=== PATIENT | male | born 1980 | race Caucasian/White ===

== ENCOUNTER 2018-06-11 07:27 | Emergency (ER) | payer SELFPAY ==
[2018-06-11 07:45] VITALS: TEMP 97.6
--- NOTE | 2018-06-11 08:02 | ED.PDOC ---
History of Present Illness - General Chief Complaint: Back Pain or Injury Time Seen by Provider: 06/11/18 07:56 Source: patient Exam Limitations: no limitations - History of Present Illness Initial Comments: 2 WEEK HX OF INCREASING LBP. 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 USUALLY RESPONDS TO OTC NSAIDS BUT THIS EPISODE HAS NOT. HAS GOTTEN PROGRESSIVELY WORSE. NOW WITH RADIATION TO L LEG DOWN TO ANKLE. Quality/Severity: moderate Back Pain Location: lumbar spine Improving Factors: nothing Worsening Factors: movement Allergies/Adverse Reactions: Allergies Penicillins Allergy (Verified 06/11/18 07:43) Rash Home Medications: Ambulatory Orders Cyclobenzaprine HCl [Flexeril] 10 mg PO TID PRN #15 tab 06/11/18 Indomethacin 50 mg PO TID PRN #14 cap 06/11/18 Methylprednisolone [Medrol Dose Tommie] 4 mg PO DAILY #1 tab 06/11/18 Review of Systems - Review of Systems Constitutional: Denies: chills, fever EENTM: States: no symptoms reported Respiratory: States: no symptoms reported Cardiology: States: no symptoms reported Gastrointestinal/Abdominal: Denies: abdominal pain, nausea, vomiting Genitourinary: States: other - NO INCONTINENCE Musculoskeletal: States: back pain, muscle pain. Denies: neck pain Skin: States: no symptoms reported Neurological: Denies: numbness, paresthesia, weakness Endocrine: States: no symptoms reported Hematologic/Lymphatic: States: no symptoms reported Past Medical History (General) - Patient Medical History Hx Stroke: No Hx Congestive Heart Failure: No Hx Diabetes: No Hx MRSA: No - Vaccination History Hx Tetanus, Diphtheria Vaccination: Yes - 2016 Hx Influenza Vaccination: No Hx Pneumococcal Vaccination: No - Social History Hx Tobacco Use: Yes Hx Alcohol Use: No Family Medical History - Family History Father Family History: Unknown Living Status: Unknown Physical Exam - Physical Exam General Appearance: Alert, No apparent distress Eyes, Ears, Nose, Throat Exam: PERRL/EOMI, normal ENT inspection Neck Exam: non-tender, full range of motion Cardiovascular/Respiratory: regular rate, rhythm, no M/R/G Gastrointestinal/Abdominal: normal bowel sounds, non tender, soft, no organomegaly Back Exam: muscle spasm, other - SIGNIFICANT R PARASPINOUS SPASM, SOME MIDLINE TTP Extremity Exam: no evidence of injury, normal range of motion Neurologic: no motor/sensory deficits, alert, other - DTR'S NL, NO FOOT DROP Skin Exam: normal color, warm/dry Progress - Progress Progress: 06/11/18 09:12 FEELS BETTER, MOVING BETTER. - EKG/XRAY/CT XRAY: LS SPINE, LOSS OF LORDOSIS, NO ACUTE BONY ABN. Departure - Departure Clinical Impression: Lumbosacral strain Qualifiers: Encounter type: initial encounter Qualified Code(s): S39.012A - Strain of muscle, fascia and tendon of lower back, initial encounter Time of Disposition: :14 Disposition: Discharge to Home or Self Care Condition: Good Departure Forms: ED Discharge - Pt. Copy, Patient Portal Self Enrollment Instructions: DI for Low Back Pain, DI for Back Strain or Sprain, DI for Back Spasm Prescriptions: Cyclobenzaprine HCl [Flexeril] 10 mg PO TID PRN #15 tab PRN Reason: Pain Indomethacin 50 mg PO TID PRN #14 cap PRN Reason: Pain Methylprednisolone [Medrol Dose Tommie] 4 mg PO DAILY #1 tab Home Medications: Ambulatory Orders Cyclobenzaprine HCl [Flexeril] 10 mg PO TID PRN #15 tab 06/11/18 Indomethacin 50 mg PO TID PRN #14 cap 06/11/18 Methylprednisolone [Medrol Dose Tommie] 4 mg PO DAILY #1 tab 06/11/18
[2018-06-11] MEDS ORDERED: KETOROLAC TROMETHAMINE INJ 60 MG/2 ML VIAL IM ONE (08:04)
[2018-06-11] MEDS ORDERED: ORPHENADRINE CITRATE 30 MG/ML AMP IV ONE (08:04)
[2018-06-11] MEDS ORDERED: ORPHENADRINE CITRATE 30 MG/ML AMP IM ONE (08:24)
--- NOTE | 2018-06-11 08:26 | RAD ---
EXAM DESCRIPTION: Lumbar Spine 3 Views CLINICAL HISTORY: LOW BACK PAIN COMPARISON: None Available. TECHNIQUE: AP/lateral/coned-down lateral FINDINGS: There is anatomic alignment of the vertebral bodies of the lumbar spine. Moderate amount of fecal material throughout the colon. Frontal view shows intact pedicles and transverse processes. Sacrum appears intact with normal SI joints. Lateral view shows no vertebral compressions. Lumbar spine appears straightened without the usual lumbar lordotic curvature. Loss of disc height is seen at L4-5 and L5-S1 suggesting disc degeneration with mild endplate sclerosis and spurring. Normal bony mineralization. No destructive lesion. IMPRESSION: Negative for fracture. Degenerative changes as described. Electronically signed by: Roney Tovar MD 06/11/2018 8:24 AM CDT
[2018-06-11 08:54] VITALS: BP 118/72
[2018-06-11] MEDS ORDERED: TRIAMCINOLONE ACETONIDE INJ 40 MG/ML VIAL IM ONE (09:17)
[2018-06-11 09:37] VITALS: O2SAT 96
== END 2018-06-11 09:36 | disposition home or self-care (01) ==
LOC: ER 07:27
DX: S39.012A Strain of muscle, fascia and tendon of lower back, initial encounter (principal); Z88.0 Allergy status to penicillin; Z87.891 Personal history of nicotine dependence; X58.XXXA Exposure to other specified factors, initial encounter; Y92.9 Unspecified place or not applicable
CPT/HCPCS: 72100; J1885; J2360; J3301

== ENCOUNTER 2018-11-14 01:34 | Emergency (ER) | payer SELFPAY ==
[2018-11-14 01:51] VITALS: BP 107/74; TEMP 97.2; O2SAT 96
[2018-11-14] MEDS ORDERED: predniSONE 20 MG TAB PO ONE (01:59)
[2018-11-14] MEDS ORDERED: HYDROcodone 7.5MG/APAP 325MG 1 EA TAB PO ONE (01:59)
--- NOTE | 2018-11-14 02:02 | ED.PDOC ---
History of Present Illness - General Chief Complaint: Lower Extremity Injury Stated Complaint: right knee pain Time Seen by Provider: 11/14/18 01:52 Source: patient Exam Limitations: no limitations - History of Present Illness Initial Comments: The patient is a 38-year-old male presenting to the emergency room secondary to pain to the medial aspect of the right knee. It started earlier today but he does not really remember any inciting event. There is no swelling. There is no deformity. Pain is greatly exacerbated with external rotation of the foot. There is pain directly over the proximal aspect of the medial collateral ligament he is not really having any pain over theanterior aspect of the medial meniscus otherwise. There does not appear to be any knee instability. Anterior and posterior drawer signs are negative. No injury proximal or distal. Timing/Duration: unsure Severity: moderate Improving Factors: nothing Worsening Factors: nothing Associated Symptoms: denies symptoms Allergies/Adverse Reactions: Allergies Penicillins Allergy (Verified 11/14/18 01:52) Rash Home Medications: Ambulatory Orders Tramadol HCl 50 mg PO Q8HR PRN #20 tab 11/14/18 Review of Systems - Review of Systems Constitutional: States: no symptoms reported EENTM: States: no symptoms reported Respiratory: States: no symptoms reported Cardiology: States: no symptoms reported Gastrointestinal/Abdominal: States: no symptoms reported Genitourinary: States: no symptoms reported Musculoskeletal: States: see HPI Skin: States: no symptoms reported Neurological: States: no symptoms reported Endocrine: States: no symptoms reported All other Systems: No Change from Baseline Past Medical History (General) - Patient Medical History Hx Seizures: No Hx Stroke: No Hx Dementia: No Hx Asthma: No Hx of COPD: No Hx Cardiac Disorders: No Hx Congestive Heart Failure: No Hx Pacemaker: No Hx Hypertension: No Hx Diabetes: No Hx Gastroesophageal Reflux: No Hx Renal Disease: No Hx Cancer: No Hx of HIV: No Hx Hepatitis C: No Hx MRSA: No Surgical History: no surgical history - Vaccination History Hx Tetanus, Diphtheria Vaccination: Yes - 2016 Hx Influenza Vaccination: No Hx Pneumococcal Vaccination: No - Social History Hx Tobacco Use: Yes Hx Alcohol Use: No Family Medical History - Family History Father Family History: Unknown Living Status: Unknown Physical Exam - Physical Exam General Appearance: Alert, Comfortable, No apparent distress Eye Exam: bilateral normal Ears, Nose, Throat: hearing grossly normal Neck: full range of motion Respiratory: no respiratory distress, no accessory muscle use Cardiovascular/Chest: normal peripheral pulses, no edema Peripheral Pulses: dorsalis pedis,right: 2+, dorsalis pedis,left: 2+ Rectal Exam: deferred Extremity: no pedal edema, no calf tenderness, normal capillary refill, other - see history of present illness Neurologic: poultry scalder II-XII nml as tested, alert, normal mood/affect, oriented x 3 Skin Exam: normal color Comments: Vital Signs - 24 hr 11/14/18 01:42 Temperature 97.2 F L Pulse Rate [ 66 monitor] Respiratory 18 Rate Blood Pressure 107/74 [Left Arm] O2 Sat by Pulse 96 Oximetry Progress - Progress Progress: 11/14/18 02:02 the patient's 38-year-old male presenting with pain over the medial collateral ligament of the right knee. Source of this is not entirely certain but there does not appear to be any instability of the knee at this time. He'll be placed in a knee immobilizer for the next 5 or 6 days to allow this to rest. He will additionally be written for some tramadol for as needed use and can take Aleve 3 tablets twice daily with food for the next week as well to help reduce inflammation. He was given 1 dose of oral prednisone here. He can follow-up with his primary care doctor next week. certainly if the patient fails to improve over the coming weeks then additional workup would be warranted. ER warnings were given. Departure - Departure Clinical Impression: Knee MCL sprain Qualifiers: Encounter type: initial encounter Laterality: right Qualified Code(s): S83.411A - Sprain of medial collateral ligament of right knee, initial encounter Disposition: Discharge to Home or Self Care Condition: Fair Departure Forms: ED Discharge - Pt. Copy, Patient Portal Self Enrollment Instructions: DI for Knee Pain Diet: regular diet Activity: other Prescriptions: Tramadol HCl 50 mg PO Q8HR PRN #20 tab PRN Reason: Moderate To Severe Pain Home Medications: Ambulatory Orders Tramadol HCl 50 mg PO Q8HR PRN #20 tab 11/14/18 Additional Instructions: the patient's 38-year-old male presenting with pain over the medial collateral ligament of the right knee. Source of this is not entirely certain but there does not appear to be any instability of the knee at this time. He'll be placed in a knee immobilizer for the next 5 or 6 days to allow this to rest. He will additionally be written for some tramadol for as needed use and can take Aleve 3 tablets twice daily with food for the next week as well to help reduce inflammation. He was given 1 dose of oral prednisone here. He can follow-up with his primary care doctor next week. certainly if the patient fails to improve over the coming weeks then additional workup would be warranted. ER warnings were given.
== END 2018-11-14 02:15 | disposition home or self-care (01) ==
LOC: ER 01:34
DX: S83.411A Sprain of medial collateral ligament of right knee, initial encounter (principal); Z88.0 Allergy status to penicillin; X58.XXXA Exposure to other specified factors, initial encounter; Y92.9 Unspecified place or not applicable

== ENCOUNTER 2018-12-18 06:31 | Emergency (ER) | payer SELFPAY ==
[2018-12-18 06:53] VITALS: TEMP 95.1
[2018-12-18] MEDS ORDERED: KETOROLAC TROMETHAMINE INJ 30 MG/ML VIAL IM ONE (06:57)
--- NOTE | 2018-12-18 07:29 | RAD ---
PROCEDURE: XR Left Hip With Pelvis When Performed, 2 Views CLINICAL INDICATION: The patient is 38 years old and is Male; left hip/buttock pain TECHNIQUE: Two or three views of the left hip, with pelvis when performed. COMPARISON: No relevant prior studies available. FINDINGS: BONES/JOINTS: There is NO fracture or dislocation the LEFT hip. Joint space maintained. The sacroiliac joints are unremarkable. There are degenerative changes in the lower lumbar spine. Bone mineral density is normal. The pubic symphysis is intact. SOFT TISSUES: No radiopaque foreign body. No significant soft tissue swelling noted. TUBES, LINES AND DEVICES: Small central linear lucency in the femoral head is of uncertain etiology or origin. OTHER FINDINGS: The pelvic brim is smooth. The sacral neural arches are intact. Urinary bladder is distended and possibly opacified with contrast. IMPRESSION: No fracture or dislocation identified in the LEFT hip. Electronically signed by: Gary Chaidez MD 12/18/2018 7:26 AM CDT
--- NOTE | 2018-12-18 07:31 | RAD ---
PROCEDURE: XR Lumbar Spine, 2 or 3 Views CLINICAL INDICATION: The patient is 38 years old and is Male; left hip/buttock pain TECHNIQUE: AP, lateral and coned down lumbosacral views of the lumbar spine were performed . COMPARISON: Prior study from 06/11/2018 FINDINGS: VERTEBRAE: There are 5 nonribbearing lumbar vertebral bodies. Vertebral body heights are preserved. There is normal alignment No acute fracture. DISC SPACES: Disc spaces are intact. SOFT TISSUES: Unremarkable.No radiopaque foreign body. No significant soft tissue swelling noted. OTHER FINDINGS: There is lumbar straightening. IMPRESSION: No fracture or malalignment identified in the lumbar spine. No significant pathology or change from six months earlier. Electronically signed by: Gary Chaidez MD 12/18/2018 7:28 AM CDT
--- NOTE | 2018-12-18 07:44 | ED.PDOC ---
History of Present Illness - General Chief Complaint: Back Pain or Injury Stated Complaint: Pt complains of L lower back and L hip pain Time Seen by Provider: 12/18/18 06:52 Source: patient - History of Present Illness Initial Comments: THIS PATIENT PRESENTS WITH LEFT GLUTEAL PAIN AND LUMBAR PAIN. IT SEEMS TO HAVE EXACERBATED LAST NIGHT. HE HAS BEEN HAVING PAIN TO THE LEFT HIP AREA NOW FOR SEVERAL WEEKS. HE DENIES ANY INJURY. AT SOME POINT HE GOT A TENS UNIT BUT IS DOES NOT WORK. HIS GAVE HIM A TYLENOL # 4 THIS AM. Quality/Severity: moderate Back Pain Location: lumbar spine Back Pain Radiation: buttocks Method of Injury/Prior Injury: unknown Improving Factors: nothing Worsening Factors: nothing Associated Symptoms: denies symptoms Allergies/Adverse Reactions: Allergies Penicillins Allergy (Verified 12/18/18 06:53) Rash Home Medications: Ambulatory Orders Acetaminophen W/ Codeine [Tylenol W/ CODEINE #3] 1 ea PO Q6HRS #20 12/18/18 Cyclobenzaprine HCl [Flexeril] 10 mg PO BID #20 tab 12/18/18 Esomeprazole Magnesium [Nexium] 20 mg PO DAILY 12/18/18 Oxymetazoline Nasal [place] [Afrin Nasal [place]] 1 spray BNAS DAILY 12/18/18 Review of Systems - Review of Systems Constitutional: States: no symptoms reported EENTM: States: no symptoms reported Respiratory: States: no symptoms reported Cardiology: States: no symptoms reported Gastrointestinal/Abdominal: States: no symptoms reported Genitourinary: States: no symptoms reported Musculoskeletal: States: joint pain, joint swelling, muscle pain Skin: States: no symptoms reported Neurological: States: no symptoms reported Endocrine: States: no symptoms reported Hematologic/Lymphatic: States: no symptoms reported Past Medical History (General) - Patient Medical History Hx Seizures: No Hx Stroke: No Hx Dementia: No Hx Asthma: No Hx of COPD: No Hx Cardiac Disorders: No Hx Congestive Heart Failure: No Hx Pacemaker: No Hx Hypertension: No Hx Diabetes: No Hx Gastroesophageal Reflux: Yes Hx Renal Disease: No Hx Cancer: No Hx of HIV: No Hx Hepatitis C: No Hx MRSA: No Surgical History: no surgical history - Vaccination History Hx Tetanus, Diphtheria Vaccination: No Hx Influenza Vaccination: No Hx Pneumococcal Vaccination: No Immunizations Up to Date: - Unkown - Social History Hx Tobacco Use: Yes Hx Alcohol Use: Yes Hx Substance Use: No Hx Substance Use Treatment: No Hx Depression: No - Female History Patient is a Female of Child Bearing Age (10 -59 yrs old): No Patient : No Family Medical History - Family History Father Family History: Unknown Living Status: Unknown Mother Living Status: Hx Family Cancer: Yes Physical Exam - Physical Exam General Appearance: Alert, Obvious distress, Well Developed, Well Nourished Eyes, Ears, Nose, Throat Exam: PERRL/EOMI, normal ENT inspection Neck Exam: non-tender, full range of motion, normal inspection Cardiovascular/Respiratory: regular rate, rhythm, no M/R/G, normal peripheral pulses, no JVD Gastrointestinal/Abdominal: normal bowel sounds, non tender, soft Back Exam: normal inspection, no vertebral tenderness, muscle spasm Extremity Exam: other - PAIN TO THE LEFT GLUTEAL REGION ON PALPATION. Neurologic: other - POSITIVE STRAIGHT LEG TEST AT 30 DEGREES ON THE LEFT Progress - Results/Orders Results/Orders: X RAYS OF THE LEFT HIP AND THE PELVIS ARE NEGATIVE FOR FRACTURE OR DISLOCATION. Departure - Departure Clinical Impression: Sciatica of left side Time of Disposition: 07:49 Disposition: Discharge to Home or Self Care Condition: Good Departure Forms: ED Discharge - Pt. Copy, Patient Portal Self Enrollment Instructions: DI for Back Pain With Sciatica Prescriptions: Acetaminophen W/ Codeine [Tylenol W/ CODEINE #3] 1 ea PO Q6HRS #20 Cyclobenzaprine HCl [Flexeril] 10 mg PO BID #20 tab Home Medications: Ambulatory Orders Acetaminophen W/ Codeine [Tylenol W/ CODEINE #3] 1 ea PO Q6HRS #20 12/18/18 Cyclobenzaprine HCl [Flexeril] 10 mg PO BID #20 tab 12/18/18 Esomeprazole Magnesium [Nexium] 20 mg PO DAILY 12/18/18 Oxymetazoline Nasal [place] [Afrin Nasal [place]] 1 spray BNAS DAILY 12/18/18 Additional Instructions: FOLLOW UP WITH YOUR FAMILY DOCTOR ONE WEEK
[2018-12-18] MEDS ORDERED: HYDROcodone 10MG/APAP 325MG 1 EA TAB PO ONE (08:20)
[2018-12-18 08:36] VITALS: BP 102/74; O2SAT 99
== END 2018-12-18 08:35 | disposition home or self-care (01) ==
LOC: ER 06:31
DX: M54.42 Lumbago with sciatica, left side (principal); K21.9 Gastro-esophageal reflux disease without esophagitis; Z87.891 Personal history of nicotine dependence; Z88.0 Allergy status to penicillin; Z79.899 Other long term (current) drug therapy
CPT/HCPCS: 72100; 73502; J1885